=== PATIENT | female | born 1995 | race Caucasian/White ===

== ENCOUNTER → 2016-10-30 | Outpatient (REF) | payer OTHER ==
[~2016-10-30] MED LIST: ACET50TA PO; IBUP80TA PO; STUACAP PO
[2016-10-30 20:49] LABS: FOLLICLE STIMULATING HORMONE 6.5 mIU/mL; LUTEINIZING HORMONE 7.2 mIU/mL
== END ==
LOC: M SFHCWAGY 09:22
PROVIDERS: ATTEND Nurse Practitioner Family
DX: Z01.411 Encounter for gynecological examination (general) (routine) with abnormal findings (principal)

== ENCOUNTER → 2016-11-06 | Outpatient (CLI) | payer OTHER ==
--- NOTE | 2016-11-06 16:41 | REP ---
MRI BRAIN WITHOUT AND WITH CONTRAST: HISTORY: Hearing loss. CONTRAST: ProHance 12 mL. There are no areas of abnormal signal intensity in the brain. There is no intraparenchymal hemorrhage, infarct, mass or midline shift. There is no abnormal enhancement. The ventricular system is normal in appearance. There is no extracerebral collection. There is no cerebellopontine angle mass. The inner ear structures are normal in appearance. The mastoid air cells and sinuses are clear. IMPRESSION: There is no intracranial lesion. Signed by Vipul Villa MD 11/06/2016 04:43 P
== END ==
LOC: M RAD 15:07
PROVIDERS: ATTEND Specialist
DX: H93.11 Tinnitus, right ear (principal); H90.41 Sensorineural hearing loss, unilateral, right ear, with unrestricted hearing on the contralateral side

== ENCOUNTER → 2017-01-15 | Outpatient (REF) | payer OTHER | LOC: M SFHCADAM 11:16 | PROVIDERS: ATTEND Family Medicine | DX: F41.9 Anxiety disorder, unspecified (principal); R53.83 Other fatigue; E28.2 Polycystic ovarian syndrome ==

== ENCOUNTER → 2017-01-19 | Outpatient (REF) | payer OTHER ==
[2017-01-19 13:16] LABS: MEAN CORPUSCULAR HEMOGLOBIN 27.5 pg (27.0-33.0); MEAN CORPUSCULAR HGB CONC 31.7 g/dl (32.0-36.5); MEAN CORPUSCULAR VOLUME 86.7 fl (80.0-96.0); RED CELL DISTRIBUTION WIDTH 13.8 % (11.5-14.5); WHITE BLOOD COUNT 11.6 K/mm3 (4.0-10.0)
[2017-01-19 13:26] LABS: ALBUMIN 3.6 GM/DL (3.2-5.2); ALBUMIN/GLOBULIN RATIO 0.95 (1.00-1.93); ALKALINE PHOSPHATASE 96 U/L (45-117); ALT/SGPT 22 U/L (12-78); ANION GAP 11 MEQ/L (8-16); AST/SGOT 13 U/L (15-37); BILIRUBIN,TOTAL 0.2 MG/DL (0.2-1.0); BLOOD UREA NITROGEN 10 MG/DL (7-18); CALCIUM LEVEL 8.6 MG/DL (8.5-10.1); CARBON DIOXIDE LEVEL 24 MEQ/L (21-32); CHLORIDE LEVEL 107 MEQ/L (98-107); CREATININE FOR GFR 0.75 MG/DL (0.55-1.02); FREE T4 0.96 NG/DL (0.76-1.46); GLOMERULAR FILTRATION RATE > 60.0 (>60); GLUCOSE, FASTING 80 MG/DL (70-105); POTASSIUM SERUM 4.2 MEQ/L (3.5-5.1); SODIUM LEVEL 142 MEQ/L (136-145); TOTAL PROTEIN 7.4 GM/DL (6.4-8.2)
== END ==
LOC: M SFHCADAM 10:37
PROVIDERS: ATTEND Family Medicine
DX: F41.9 Anxiety disorder, unspecified (principal); R53.83 Other fatigue; E28.2 Polycystic ovarian syndrome

== ENCOUNTER → 2017-02-11 | Outpatient (REF) | payer OTHER ==
[2017-02-11 14:08] LABS: MEAN CORPUSCULAR HEMOGLOBIN 28.1 pg (27.0-33.0); MEAN CORPUSCULAR HGB CONC 33.2 g/dl (32.0-36.5); MEAN CORPUSCULAR VOLUME 84.8 fl (80.0-96.0); RED CELL DISTRIBUTION WIDTH 13.8 % (11.5-14.5); WHITE BLOOD COUNT 12.5 K/mm3 (4.0-10.0)
[2017-02-11 21:50] LABS: HCG, SERUM QUANTITATIVE 2988 MIU/ML
== END ==
LOC: M LAB REF 10:34
PROVIDERS: ATTEND Advanced Practice Midwife
DX: O36.80X0 Pregnancy with inconclusive fetal viability, not applicable or unspecified (principal)

== ENCOUNTER → 2017-04-08 | Outpatient (REF) | payer OTHER | LOC: M LAB REF 17:13 | PROVIDERS: ATTEND Advanced Practice Midwife | DX: Z34.81 Encounter for supervision of other normal pregnancy, first trimester (principal) ==

== ENCOUNTER → 2017-07-06 | Outpatient (CLI) | payer OTHER ==
[2017-07-06 10:31] LABS: HEMATOCRIT 35.1 % (36.0-47.0); HEMOGLOBIN 11.2 g/dl (12.0-16.0); MEAN CORPUSCULAR HEMOGLOBIN 27.6 pg (27.0-33.0); MEAN CORPUSCULAR HGB CONC 31.9 g/dl (32.0-36.5); MEAN CORPUSCULAR VOLUME 86.5 fl (80.0-96.0); PLATELET COUNT, AUTOMATED 309 10^3/uL (150-450); RED BLOOD COUNT 4.06 10^6/uL (4.00-5.40); RED CELL DISTRIBUTION WIDTH 14.6 % (11.5-14.5)
[2017-07-06 10:46] LABS: GLUCOSE CHALLENGE TEST 1 HOUR 158 MG/DL (LESS THAN 140)
== END ==
LOC: M LAB 09:01
DX: Z34.82 Encounter for supervision of other normal pregnancy, second trimester (principal)
CPT/HCPCS: 82950

== ENCOUNTER → 2017-07-09 | Outpatient (CLI) | payer OTHER ==
[2017-07-09 09:19] LABS: GLUCOSE, FASTING 82 MG/DL (LESS THAN 95)
[2017-07-09 09:24] LABS: 1 HR GLUCOSE 175 MG/DL (LESS THAN 180)
[2017-07-09 10:24] LABS: 2 HR GLUCOSE 177 MG/DL (LESS THAN 155)
[2017-07-09 11:25] LABS: 3 HR GLUCOSE 70 MG/DL (LESS THAN 140)
== END ==
LOC: M LAB 07:32
DX: O99.810 Abnormal glucose complicating pregnancy (principal)
CPT/HCPCS: 82951

== ENCOUNTER → 2017-09-10 | Outpatient (REF) | payer OTHER | LOC: M LAB REF 16:40 | DX: Z34.83 Encounter for supervision of other normal pregnancy, third trimester (principal) ==

== ENCOUNTER 2017-09-12 09:46 | Outpatient (CLI) | payer OTHER ==
[2017-09-12] MEDS: PERCOCET 5MG/325MG TAB PO (11:20)
[2017-09-12 12:13] LABS: TOTAL PROTEIN,RANDOM URINE 6.6 MG/DL (0.0-12.0)
[2017-09-12 12:32] LABS: HEMATOCRIT 33.2 % (36.0-47.0); HEMOGLOBIN 10.3 g/dl (12.0-15.5); MEAN CORPUSCULAR HEMOGLOBIN 25.1 pg (27.0-33.0); PLATELET COUNT, AUTOMATED 306 10^3/uL (150-450); RED CELL DISTRIBUTION WIDTH 15.8 % (11.5-14.5); WHITE BLOOD COUNT 14.2 10^3/uL (4.0-10.0)
[2017-09-12 12:57] LABS: ALT/SGPT 16 U/L (12-78); AST/SGOT 15 U/L (7-37); BILIRUBIN,TOTAL 0.2 MG/DL (0.2-1.0); CREATININE FOR GFR 0.67 MG/DL (0.55-1.30); GLOMERULAR FILTRATION RATE > 60.0 (>60); LDH LACTATE DEHYDROGENASE 125 U/L (84-246); URIC ACID 3.3 MG/DL (2.6-6.0)
[2017-09-12 13:03] LABS: CREATININE,RANDOM URINE 26.5 MG/DL
== END 2017-09-12 14:00 | disposition home or self-care (01) ==
LOC: M LDO 09:46
DX: O99.89 Other specified diseases and conditions complicating pregnancy, childbirth and the puerperium (principal); R51 Headache; Z3A.35 35 weeks gestation of pregnancy
CPT/HCPCS: 84460

== ENCOUNTER 2017-09-24 14:09 | Inpatient (IN) | payer OTHER ==
[2017-09-24 15:38] LABS: MEAN CORPUSCULAR HGB CONC 31.3 g/dl (32.0-36.5); PLATELET COUNT, AUTOMATED 271 10^3/uL (150-450); RED CELL DISTRIBUTION WIDTH 16.2 % (11.5-14.5); WHITE BLOOD COUNT 11.6 10^3/uL (4.0-10.0)
[2017-09-24 16:20] LABS: ALT/SGPT 18 U/L (12-78); AST/SGOT 29 U/L (7-37); BILIRUBIN,TOTAL 0.3 MG/DL (0.2-1.0); CREATININE FOR GFR 0.71 MG/DL (0.55-1.30); GLOMERULAR FILTRATION RATE > 60.0 (>60); LDH LACTATE DEHYDROGENASE 284 U/L (84-246); URIC ACID 4.2 MG/DL (2.6-6.0)
[2017-09-24] MEDS: miSOPROStol 50 MCG 1/2 TAB (S0191) PO ×2 (17:56→22:07)
[2017-09-24] MEDS: ACETAMINOPHEN TAB 650MG DOSE (2X325MG) PO (20:00)
[2017-09-25] MEDS: miSOPROStol 50 MCG 1/2 TAB (S0191) PO ×2 (02:00→06:21)
[2017-09-25] MEDS: PRENATAL VITAMINS CHEWABLE TABLET PO (09:00)
[2017-09-25 09:15] LABS: BASO % 0.3 % (0.0-1.0); EOS # 0.1 10^3/uL (0.0-0.50); EOS % 0.7 % (0.0-3.0); HEMATOCRIT 32.7 % (36.0-47.0); HEMOGLOBIN 10.1 g/dl (12.0-15.5); IMMATURE GRANULOCYTE % 0.8 % (0-3.0); LYMPH % 16.7 % (24.0-44.0); MEAN CORPUSCULAR HEMOGLOBIN 24.7 pg (27.0-33.0); MEAN CORPUSCULAR HGB CONC 30.9 g/dl (32.0-36.5); MONO # 0.5 10^3/uL (0.0-0.8); MONO % 4.2 % (0.0-5.0); NEUTROPHILS # 9.1 10^3/uL (1.8-7.7); NEUTROPHILS % 77.3 % (36.0-66.0); PLATELET COUNT, AUTOMATED 257 10^3/uL (150-450); RED BLOOD COUNT 4.09 10^6/uL (4.00-5.40); RED CELL DISTRIBUTION WIDTH 16.2 % (11.5-14.5); WHITE BLOOD COUNT 11.8 10^3/uL (4.0-10.0)
[2017-09-25 09:33] LABS: ALT/SGPT 17 U/L (12-78); AST/SGOT 19 U/L (7-37); BILIRUBIN,TOTAL 0.2 MG/DL (0.2-1.0); CREATININE FOR GFR 0.68 MG/DL (0.55-1.30); GLOMERULAR FILTRATION RATE > 60.0 (>60); LDH LACTATE DEHYDROGENASE 173 U/L (84-246)
[2017-09-25] MEDS: LR 1,000 ML IV ×3 (12:52→22:58)
[2017-09-25] MEDS: LACTATED RINGER'S 1000 ML IV (12:52)
[2017-09-25] MEDS: BICITRA 30ML SOLN UDC PO (13:37)
[2017-09-25] MEDS ORDERED: fentaNYL 100 MCG/2 ML INJECTION (J3010) As Ordered (13:42)
[2017-09-25] MEDS ORDERED: MORPHINE PRES-FREE INJ 10 MG/10 ML VIAL (J2274) As Ordered (13:42)
[2017-09-25] MEDS ORDERED: OXYTOCIN INJ 10 UNITS/ML VIAL (J2590) As Ordered (13:42)
[2017-09-25] MEDS ORDERED: NALOXONE INJ 0.4 MG/1 ML VIAL (J2310) IV ×2 (13:53)
[2017-09-25] MEDS ORDERED: ONDANSETRON 4MG/2ML VIAL (J2405) IV ×2 (13:53→15:15)
[2017-09-25] MEDS ORDERED: NALBUPHINE HCL 10 MG/ML AMP (J2300) IV (13:53)
[2017-09-25] MEDS ORDERED: PHENYLephrine HCL 500 MCG/5 ML (100MCG/ML) SYRINGE (J2370) As Ordered (14:07)
[2017-09-25] MEDS ORDERED: ONDANSETRON 4MG/2ML VIAL (J2405) As Ordered (14:31)
[2017-09-25] MEDS ORDERED: dexameTHASONE 4 MG/ML 1ML VIAL (J1100) As Ordered (14:31)
[2017-09-25] MEDS ORDERED: KETOROLAC 60 MG/2 ML VIAL (J1885) As Ordered (14:31)
[2017-09-25 14:41] LABS: CORD GAS ABE A -4.5; CORD GAS ABE V -4.9; CORD GAS HCO3 A 21.6 MEQ/L; CORD GAS HCO3 V 18.9 MEQ/L; CORD GAS O2 SAT A 74.7 %; CORD GAS O2 SAT V 90.6 %; CORD GAS PCO2 A 43.3 mmHg; CORD GAS PCO2 V 31.9 mmHg; CORD GAS PH A 7.316 UNITS; CORD GAS PO2 A 33.3 mmHg; CORD GAS PO2 V 47.8 mmHg; CORD GAS SBC A 20.3 MEQ/L; CORD GAS SBC V 20.3 MEQ/L; CORD GAS TCO2 A 22.9 MEQ/L; CORD GAS TCO2 V 19.9 MEQ/L
[2017-09-25] MEDS ORDERED: MOM 30ML SUSPENSION UDC PO (15:00)
[2017-09-25] MEDS ORDERED: NORCO, ANEXSIA 5/325MG TABLET (HYDROcodone/ACETAMINOPHEN) PO (15:00)
[2017-09-25] MEDS ORDERED: KETOROLAC 30 MG/ML VIAL (J1885) IV (15:15)
[2017-09-25] MEDS ORDERED: PERCOCET 5MG/325MG TAB PO (15:15)
[2017-09-25] MEDS ORDERED: fentaNYL 100 MCG/2 ML INJECTION (J3010) IV (15:15)
[2017-09-25] MEDS ORDERED: MEPERIDINE INJ 25 MG/ML VIAL (J2175) IV (15:15)
[2017-09-25] MEDS ORDERED: diphenhydrAMINE INJ 50MG/ML VIAL (J1200) IV (15:15)
[2017-09-25] MEDS: METOCLOPRAMIDE INJ 10MG/2ML VIAL (J2765) IV (17:03)
[2017-09-25] MEDS: MEASLES,MUMPS,RUBELLA VACCINE INJ (MMR-II) (90707) SC (17:41)
[2017-09-25] MEDS: RHOGAM 300 MCG (1500 IU) INJ (J2790) IM (17:41)
[2017-09-25] MEDS: IBUPROFEN 800 MG TAB PO (20:58)
[2017-09-25] MEDS: ONDANSETRON 4MG/2ML VIAL (J2405) IV (20:58)
[2017-09-25] MEDS: DOCUSATE SODIUM 100 MG CAP PO (20:58)
[2017-09-26] MEDS: IBUPROFEN 800 MG TAB PO ×3 (05:03→21:03)
[2017-09-26 06:34] LABS: HEMATOCRIT 27.2 % (36.0-47.0); HEMOGLOBIN 8.4 g/dl (12.0-15.5); MEAN CORPUSCULAR HEMOGLOBIN 24.6 pg (27.0-33.0); MEAN CORPUSCULAR HGB CONC 30.9 g/dl (32.0-36.5); MEAN CORPUSCULAR VOLUME 79.8 fl (80.0-96.0); PLATELET COUNT, AUTOMATED 217 10^3/uL (150-450); RED BLOOD COUNT 3.41 10^6/uL (4.00-5.40); RED CELL DISTRIBUTION WIDTH 16.1 % (11.5-14.5); WHITE BLOOD COUNT 14.4 10^3/uL (4.0-10.0)
[2017-09-26] MEDS: PRENATAL VITAMINS CHEWABLE TABLET PO (09:00)
[2017-09-26] MEDS: DOCUSATE SODIUM 100 MG CAP PO ×2 (09:11→20:10)
[2017-09-26] MEDS: OMEPRAZOLE 20 MG CAP PO (12:40)
[2017-09-26] MEDS: NORCO, ANEXSIA 5/325MG TABLET (HYDROcodone/ACETAMINOPHEN) PO ×2 (12:41→21:03)
[2017-09-27] MEDS: NORCO, ANEXSIA 5/325MG TABLET (HYDROcodone/ACETAMINOPHEN) PO (05:21)
[2017-09-27] MEDS: IBUPROFEN 800 MG TAB PO (05:21)
[2017-09-27] MEDS: PRENATAL VITAMINS CHEWABLE TABLET PO (07:46)
[2017-09-27] MEDS: DOCUSATE SODIUM 100 MG CAP PO (07:47)
[2017-09-27] MEDS: OMEPRAZOLE 20 MG CAP PO (07:47)
== END 2017-09-27 11:50 | disposition home or self-care (01) | DRG 540 ==
LOC: M LDI 14:09 → M OBS 09-25 16:37
PROC: 10D00Z1 Extraction of Products of Conception, Low, Open Approach (ICD-10-PCS; principal; 2017-09-25 13:43)
PROC: 0UL70DZ Occlusion of Bilateral Fallopian Tubes with Intraluminal Device, Open Approach (ICD-10-PCS; 2017-09-25 13:43)
PROC: 3E0DXGC Introduction of Other Therapeutic Substance into Mouth and Pharynx, External Approach (ICD-10-PCS; 2017-09-25 13:43)
DX: O14.94 Unspecified pre-eclampsia, complicating childbirth (principal); O69.82X0 Labor and delivery complicated by other cord entanglement, without compression, not applicable or unspecified; Z37.0 Single live birth; Z3A.37 37 weeks gestation of pregnancy; Z30.2 Encounter for sterilization; Z87.59 Personal history of other complications of pregnancy, childbirth and the puerperium

== ENCOUNTER → 2018-01-18 | Outpatient (REF) | payer OTHER ==
[2018-01-18 13:40] LABS: HEMATOCRIT 40.6 % (36.0-47.0); HEMOGLOBIN 11.8 g/dl (12.0-15.5); MEAN CORPUSCULAR HEMOGLOBIN 22.3 pg (27.0-33.0); MEAN CORPUSCULAR HGB CONC 29.1 g/dl (32.0-36.5); MEAN CORPUSCULAR VOLUME 76.6 fl (80.0-96.0); PLATELET COUNT, AUTOMATED 435 10^3/uL (150-450); RED CELL DISTRIBUTION WIDTH 16.8 % (11.5-14.5); WHITE BLOOD COUNT 11.9 10^3/uL (4.0-10.0)
[2018-01-18 14:20] LABS: CHOLESTEROL LEVEL 170 MG/DL (<200); FREE T4 0.78 NG/DL (0.76-1.46); HDL CHOLESTEROL 34 MG/DL (>40); LDL CHOLESTEROL 96.8 MG/DL (<100); NON-HDL-C 136 MG/DL; TRIGLYCERIDES LEVEL 196 MG/DL (<150)
[2018-01-18 23:28] LABS: ESTIMATED AVERAGE GLUCOSE 105 MG/DL (60-110); HEMOGLOBIN A1c 5.3 %
== END ==
LOC: M LAB REF 13:06
DX: Z01.411 Encounter for gynecological examination (general) (routine) with abnormal findings (principal); E66.09 Other obesity due to excess calories

== ENCOUNTER → 2019-01-19 | Outpatient (CLI) | payer OTHER ==
[~2019-01-19] MED LIST changes: -ACET50TA PO; +IBUP-1114 PO; +MAPA500T2 PO; +OMEP40CA2 PO; +OXYC1TAB23 PO; +PREN29CH2 PO; +TUMS500C PO
--- NOTE | 2019-01-20 09:01 | REP ---
Clinical: Right foot pain Technique: AP, lateral, bilateral oblique views right foot . Findings: The osseous structures and joint spaces are intact and normal. There is no evidence for acute fracture or dislocation. Surrounding soft tissues are unremarkable. No subcutaneous emphysema or radiodense foreign body. Impression: Age-appropriate right foot series . No acute fracture or dislocation. Electronically Signed by Charlie Lazaro MD 01/20/2019 08:52 A
== END ==
LOC: M ADAMS 09:22
PROVIDERS: ATTEND Physician Assistant Medical
DX: M79.671 Pain in right foot (principal)

== ENCOUNTER → 2019-01-25 | Outpatient (REF) | payer OTHER ==
[2019-01-25 14:13] LABS: HEMATOCRIT 45.9 % (36.0-47.0); HEMOGLOBIN 13.8 g/dl (12.0-15.5); MEAN CORPUSCULAR HEMOGLOBIN 25.9 pg (27.0-33.0); MEAN CORPUSCULAR HGB CONC 30.1 g/dl (32.0-36.5); MEAN CORPUSCULAR VOLUME 86.1 fl (80.0-96.0); PLATELET COUNT, AUTOMATED 343 10^3/uL (150-450); RED BLOOD COUNT 5.33 10^6/uL (4.00-5.40); WHITE BLOOD COUNT 12.1 10^3/uL (4.0-10.0)
[2019-01-25 14:20] LABS: PERCENT SATURATION 9.2 % (13.2-45.0)
[2019-01-25 14:27] LABS: FOLATE 6.6 NG/ML
== END ==
LOC: M SFHCADAM 08:33
PROVIDERS: ATTEND Physician Assistant Medical
DX: D64.9 Anemia, unspecified (principal)

== ENCOUNTER → 2019-03-30 | Outpatient (REF) | payer OTHER ==
[~2019-03-30] MED LIST changes: -OMEP40CA2 PO; +OMEP40CA97 PO
== END ==
LOC: M LAB REF 12:58
PROVIDERS: ATTEND Physician Assistant Medical
DX: R10.9 Unspecified abdominal pain (principal)

== ENCOUNTER → 2019-03-30 | Outpatient (CLI) | payer OTHER ==
--- NOTE | 2019-03-30 15:28 | REP ---
Pelvic sonography: History: Left pelvic pain. History of PCOS. Possible ovarian cyst. Findings: Transabdominal and transvaginal scanning are performed. Uterine dimensions are normal at 8.3 x 4.2 x 5.0 cm. Endometrial echo is 0.6 cm thick. There is a 2.0 x 2.1 x 1.7 cm hypoechoic area in the anterior uterine myometrium consistent with a small fibroid. No free fluid is seen. Right ovary measures 3.1 x 2.0 x 1.5 cm. It is normal in appearance. Doppler flow is normal, resistive index 0.51. The left ovary is normal in size measuring 2.6 x 2.0 x 2.1 cm. Its Doppler flow is normal, resistive index 0.47. There is a 1.7 x 1.3 x 0.9 cm cyst within the left ovary. No large cystic lesion is seen. Impression: Small uterine fibroid 2.1 cm in greatest diameter. 17 mm follicle cyst left ovary. Otherwise unremarkable. Electronically Signed by Eamon Baldwin MD 03/30/2019 04:54 P
== END ==
LOC: M RAD 13:52
PROVIDERS: ATTEND Physician Assistant Medical
DX: R10.9 Unspecified abdominal pain (principal); N83.202 Unspecified ovarian cyst, left side

== ENCOUNTER 2019-05-14 23:56 | Emergency (ER) | payer OTHER ==
[~2019-05-14] VITALS: Ht 152.4 cm; Wt 93.4 kg
[2019-05-15 00:51] LABS: HEMATOCRIT 43.3 % (36.0-47.0); HEMOGLOBIN 13.2 g/dl (12.0-15.5); MEAN CORPUSCULAR HEMOGLOBIN 26.3 pg (27.0-33.0); MEAN CORPUSCULAR HGB CONC 30.5 g/dl (32.0-36.5); MEAN CORPUSCULAR VOLUME 86.3 fl (80.0-96.0); PLATELET COUNT, AUTOMATED 398 10^3/uL (150-450); RED BLOOD COUNT 5.02 10^6/uL (4.00-5.40); WHITE BLOOD COUNT 14.6 10^3/uL (4.0-10.0)
[2019-05-15 01:05] LABS: BLOOD UREA NITROGEN 11 MG/DL (7-18); CALCIUM LEVEL 9.3 MG/DL (8.5-10.1); CARBON DIOXIDE LEVEL 29 MEQ/L (21-32); CHLORIDE LEVEL 106 MEQ/L (98-107); CK-MB VALUE MASS < 1.0 NG/ML (<3.6); CPK CREATINE PHOSPHOKINASE 61 U/L (26-192); CREATININE FOR GFR 0.86 MG/DL (0.55-1.30); GLOMERULAR FILTRATION RATE > 60.0 (>60); GLUCOSE, FASTING 111 MG/DL (70-100); MB/CK RELATIVE INDEX 1.64 (< OR =4); POTASSIUM SERUM 3.7 MEQ/L (3.5-5.1); SODIUM LEVEL 142 MEQ/L (136-145); TROPONIN I < 0.02 NG/ML (< 0.10)
[2019-05-15 01:09] LABS: BASOPHILS 2 % (0-1); EOSINOPHILS 3 % (0-3); LYMPHOCYTES 29 % (16-44); MONOCYTES 3 % (0-5); NEUTROPHILS 63 % (28-66)
[2019-05-15 01:10] LABS: PLATELET ESTIMATE NORMAL (NORMAL)
[2019-05-15] MEDS: GI COCKTAIL 50ML BTL(HYOSCYAMINE/MAALOX/LIDOCAINE VISCOUS)(1:3:1) PO ONE ×2 (01:45→02:15)
[2019-05-15 02:08] LABS: FREE T4 0.91 NG/DL (0.76-1.46); MAGNESIUM LEVEL 2.2 MG/DL (1.8-2.4)
[2019-05-15 03:45] VITALS: BP 113/63
--- NOTE | 2019-05-15 09:20 | REP ---
REASON: Chest pain. FINDINGS: The superior mediastinal structures are midline. The cardiac silhouette is unremarkable in size, shape, and position. The diaphragmatic surfaces of the lungs are regular, and the costophrenic angles are clear. The pulmonary ochoa are clear. The imaged osseous structures are intact. IMPRESSION: There is no acute cardiopulmonary disease. Electronically Signed by Edin Watts DO 05/15/2019 09:29 A
--- NOTE | 2019-05-16 08:21 | ECGEPIP ---
[facility] - ED Test Date: 2019-05-15 Pat Name: MISAEL TIMMONS Department: Room: - Gender: Female Laboratory Secretary: sb : 1995 Requested By: BEN Roblero Order Number: [id number] Reading MD: Jose Riley Measurements Intervals [place] Rate: 81 P: 10 WA: 128 QRS: 20 QRSD: 92 T: 22 QT: 341 QTc: 398 Interpretive Statements SINUS RHYTHM NONSPECIFIC T-WAVE ABNORMALITY NO PRIORS FOR COMPARISON Electronically Signed on 05-16-2019 8:21:27 EST by Jose Riley
== END 2019-05-15 04:12 | disposition home or self-care (01) ==
LOC: M ED 23:56
DX: R00.2 Palpitations (principal); R07.9 Chest pain, unspecified

== ENCOUNTER → 2019-05-27 | Outpatient (REF) | payer OTHER | LOC: M LAB REF 12:32 | PROVIDERS: ATTEND Physician Assistant Medical | DX: M54.9 Dorsalgia, unspecified (principal) ==

== ENCOUNTER → 2019-05-27 | Outpatient (CLI) | payer OTHER ==
--- NOTE | 2019-05-27 12:44 | REP ---
Clinical: Flank pain. Technique: Single supine view of the abdomen and pelvis. Findings: No obvious urinary tract calcifications are appreciated. The bowel gas pattern is nonspecific. Skeletal structures are intact. No abnormal calcifications. Tubal ligation clips noted in the pelvis. Impression: Nonspecific examination. No obvious urinary tract calcifications. Electronically Signed by Charlie Lazaro MD 05/27/2019 12:35 P
[2019-05-27 12:54] LABS: BASO % 0.3 % (0.0-1.0); EOS # 0.2 10^3/uL (0.0-0.5); EOS % 1.6 % (0.0-3.0); HEMATOCRIT 46.1 % (36.0-47.0); HEMOGLOBIN 13.8 g/dl (12.0-15.5); LYMPH # 3.2 10^3/uL (1.5-5.0); LYMPH % 27.2 % (24.0-44.0); MEAN CORPUSCULAR HEMOGLOBIN 26.1 pg (27.0-33.0); MEAN CORPUSCULAR HGB CONC 29.9 g/dl (32.0-36.5); MEAN CORPUSCULAR VOLUME 87.3 fl (80.0-96.0); MONO # 0.5 10^3/uL (0.0-0.8); MONO % 4.3 % (0.0-5.0); NEUTROPHILS # 7.7 10^3/uL (1.5-8.5); PLATELET COUNT, AUTOMATED 389 10^3/uL (150-450); RED BLOOD COUNT 5.28 10^6/uL (4.00-5.40); WHITE BLOOD COUNT 11.7 10^3/uL (4.0-10.0)
[2019-05-27 13:22] LABS: HEMOGLOBIN A1c 5.5 %
[2019-05-27 13:26] LABS: MONO SCRN NEGATIVE (NEGATIVE)
[2019-05-27 13:29] LABS: ALBUMIN 3.7 GM/DL (3.2-5.2); ALT/SGPT 49 U/L (12-78); AMYLASE 55 U/L (25-115); BILIRUBIN,TOTAL 0.3 MG/DL (0.2-1.0); BLOOD UREA NITROGEN 12 MG/DL (7-18); CALCIUM LEVEL 9.3 MG/DL (8.5-10.1); CARBON DIOXIDE LEVEL 24 MEQ/L (21-32); CHLORIDE LEVEL 109 MEQ/L (98-107); CREATININE FOR GFR 0.76 MG/DL (0.55-1.30); GLOMERULAR FILTRATION RATE > 60.0 (>60); GLUCOSE, FASTING 83 MG/DL (70-100); POTASSIUM SERUM 4.2 MEQ/L (3.5-5.1); SODIUM LEVEL 140 MEQ/L (136-145); TOTAL PROTEIN 7.6 GM/DL (6.4-8.2)
== END ==
LOC: M LAB 11:48
PROVIDERS: ATTEND Physician Assistant Medical
DX: R10.9 Unspecified abdominal pain (principal); M54.5 Low back pain; R53.83 Other fatigue

== ENCOUNTER → 2019-05-30 | Outpatient (REF) | payer OTHER ==
[2019-05-30 14:34] LABS: PERCENT SATURATION 14.5 % (13.2-45.0)
== END ==
LOC: M SFHCADAM 11:29
PROVIDERS: ATTEND Physician Assistant Medical
DX: E61.1 Iron deficiency (principal)

== ENCOUNTER → 2019-09-23 | Outpatient (REF) | payer OTHER ==
[2019-09-23 13:35] LABS: BLOOD UREA NITROGEN 15 MG/DL (7-18); CALCIUM LEVEL 9.5 MG/DL (8.5-10.1); CARBON DIOXIDE LEVEL 28 MEQ/L (21-32); CHLORIDE LEVEL 107 MEQ/L (98-107); CREATININE FOR GFR 0.91 MG/DL (0.55-1.30); GLOMERULAR FILTRATION RATE > 60.0 (>60); GLUCOSE, FASTING 80 MG/DL (70-100); POTASSIUM SERUM 4.4 MEQ/L (3.5-5.1); SODIUM LEVEL 140 MEQ/L (136-145)
== END ==
LOC: M SFHCADAM 09:24
PROVIDERS: ATTEND Physician Assistant Medical
DX: E28.2 Polycystic ovarian syndrome (principal)

== ENCOUNTER → 2020-02-23 | Outpatient (REF) | payer OTHER ==
[2020-02-23 17:52] LABS: APPEARANCE, URINE CLOUDY (CLEAR); BACTERIA, URINE AUTO NEGATIVE (NEGATIVE); BILIRUBIN, URINE AUTO NEGATIVE (NEGATIVE); BLOOD, URINE BLOOD NEGATIVE (NEGATIVE); COLOR, URINE YELLOW (YELLOW); GLUCOSE, URINE (UA) AUTO NEGATIVE (NEGATIVE); KETONE, URINE AUTO NEGATIVE (NEGATIVE); LEUKOCYTE ESTERASE, URINE AUTO NEGATIVE (NEGATIVE); MUCUS, URINE SMALL (NEGATIVE); NITRITE, URINE AUTO NEGATIVE (NEGATIVE); PROTEIN, URINE AUTO NEGATIVE (NEGATIVE); RBC, URINE AUTO 1 /HPF (0-3); SPECIFIC GRAVITY URINE AUTO 1.026 (1.002-1.035); SQUAMOUS EPITHELIAL CELL UR AU 12 /HPF (0-6); UROBILINOGEN, URINE AUTO 0.2 mg/dL (0.0-2.0); WBC, URINE AUTO 1 /HPF (0-3)
== END ==
LOC: M LAB REF 16:14
PROVIDERS: ATTEND Physician Assistant
DX: N39.0 Urinary tract infection, site not specified (principal)

== ENCOUNTER → 2022-06-10 | Outpatient (CLI) | payer OTHER ==
[~2022-06-10] MED LIST changes: +OMEP40CA4 PO; -OMEP40CA97 PO
== END ==
LOC: M RAD 11:31
PROVIDERS: ATTEND Nurse Practitioner Family
DX: R10.2 Pelvic and perineal pain (principal)

== ENCOUNTER → 2023-06-15 | Outpatient (REF) | payer OTHER ==
[2023-06-15 14:54] LABS: THYROID STIMULATING HORMONE 2.602 uIU/ML (0.55-4.78)
[2023-06-15 14:56] LABS: BASO # 0.1 10^3/uL (0.0-0.2); BASO % 0.6 % (0.0-1.0); EOS # 0.2 10^3/uL (0.0-0.5); HEMATOCRIT 44.3 % (36.0-47.0); HEMOGLOBIN 13.4 g/dl (12.0-15.5); LYMPH # 2.8 10^3/uL (1.5-5.0); LYMPH % 27.6 % (24.0-44.0); MEAN CORPUSCULAR HEMOGLOBIN 26.2 pg (27.0-33.0); MEAN CORPUSCULAR HGB CONC 30.2 g/dl (32.0-36.5); MEAN CORPUSCULAR VOLUME 86.5 fl (80.0-96.0); MONO # 0.5 10^3/uL (0.0-0.8); MONO % 5.2 % (2.0-8.0); NEUTROPHILS # 6.5 10^3/uL (1.5-8.5); NEUTROPHILS % 64.1 % (36.0-66.0); PLATELET COUNT, AUTOMATED 384 10^3/uL (150-450); RED BLOOD COUNT 5.12 10^6/uL (4.00-5.40); TOTAL 25(OH) VITAMIN D 28.2 NG/ML (20.0-100.0); WHITE BLOOD COUNT 10.1 10^3/uL (4.0-10.0)
[2023-06-15 14:57] LABS: VITAMIN B12 LEVEL 475 PG/ML (211-911)
[2023-06-15 14:59] LABS: ALBUMIN 3.8 G/DL (3.2-5.2); ALKALINE PHOSPHATASE 111 U/L (46-116); ALT/SGPT 37 U/L (7.0-40); AST/SGOT 18 U/L (<34); BILIRUBIN,TOTAL 0.3 MG/DL (0.3-1.2); BLOOD UREA NITROGEN 12 MG/DL (9-23); CALCIUM LEVEL 9.3 MG/DL (8.5-10.1); CARBON DIOXIDE LEVEL 27 MMOL/L (20-31); CHLORIDE LEVEL 108 MMOL/L (98-107); CREATININE FOR GFR 0.76 MG/DL (0.55-1.30); GLOMERULAR FILTRATION RATE > 60.0 (>60); GLUCOSE, FASTING 87 MG/DL (60-100); POTASSIUM SERUM 4.2 MMOL/L (3.5-5.1); SODIUM LEVEL 140 MMOL/L (136-145); TOTAL PROTEIN 7.2 G/DL (5.7-8.2)
[2023-06-15 15:00] LABS: COMPLEMENT C3 193.4 MG/DL (82.0-160.0); FREE T4 1.02 NG/DL (0.89-1.76)
[2023-06-15 15:12] LABS: ERYTHROCYTE SEDIMENTATION RATE 53 mm/hr (0-20)
[2023-06-15 15:26] LABS: HEMOGLOBIN A1c 5.4 % (4.0-6.0)
[2023-06-17 00:07] LABS: ANA (HEP2) Negative (.)
== END ==
LOC: M SFHCADAM 09:14
PROVIDERS: ATTEND Physician Assistant Medical
DX: E28.2 Polycystic ovarian syndrome (principal); Z68.41 Body mass index [BMI] 40.0-44.9, adult; F41.1 Generalized anxiety disorder; R20.2 Paresthesia of skin; M79.10 Myalgia, unspecified site; M25.60 Stiffness of unspecified joint, not elsewhere classified; R79.89 Other specified abnormal findings of blood chemistry; Z84.0 Family history of diseases of the skin and subcutaneous tissue; Z83.49 Family history of other endocrine, nutritional and metabolic diseases

== ENCOUNTER → 2023-06-24 | Outpatient (REF) | payer OTHER | LOC: M SFHCADAM 13:23 | PROVIDERS: ATTEND Physician Assistant Medical | DX: Z83.49 Family history of other endocrine, nutritional and metabolic diseases (principal) ==

== ENCOUNTER → 2023-08-04 | Outpatient (CLI) | payer OTHER ==
[2023-08-04 11:48] LABS: C REACTIVE PROTEIN QUANTITATIV 1.2 MG/DL (<1.0)
[2023-08-04 11:49] LABS: COMPLEMENT C3 180.6 MG/DL (82.0-160.0); COMPLEMENT C4 38.7 MG/DL (12-36)
== END ==
LOC: M LAB 09:55
PROVIDERS: ATTEND Physician Assistant Medical
DX: D84.1 Defects in the complement system (principal)

== ENCOUNTER → 2023-08-04 | Outpatient (CLI) | payer OTHER ==
[2023-08-04 11:51] LABS: ALBUMIN 3.9 G/DL (3.2-5.2); ALKALINE PHOSPHATASE 107 U/L (46-116); ALT/SGPT 47 U/L (7.0-40); AST/SGOT 26 U/L (<34); BILIRUBIN,TOTAL 0.4 MG/DL (0.3-1.2); BLOOD UREA NITROGEN 12 MG/DL (9-23); CALCIUM LEVEL 8.9 MG/DL (8.5-10.1); CARBON DIOXIDE LEVEL 27 MMOL/L (20-31); CHLORIDE LEVEL 107 MMOL/L (98-107); CHOLESTEROL LEVEL 173 MG/DL (<200); CREATININE FOR GFR 0.76 MG/DL (0.55-1.30); GLOMERULAR FILTRATION RATE > 60.0 (>60); GLUCOSE, FASTING 87 MG/DL (60-100); LDL CHOLESTEROL 106.6 MG/DL (<100); POTASSIUM SERUM 4.3 MMOL/L (3.5-5.1); SODIUM LEVEL 138 MMOL/L (136-145); TOTAL PROTEIN 7.2 G/DL (5.7-8.2); TRIGLYCERIDES LEVEL 172 MG/DL (<150)
[2023-08-04 11:52] LABS: HEMOGLOBIN A1c 5.4 % (4.0-6.0)
== END ==
LOC: M LAB 09:59
PROVIDERS: ATTEND Physician Assistant
DX: E28.2 Polycystic ovarian syndrome (principal)

== ENCOUNTER → 2024-04-25 | Outpatient (REF) | payer OTHER ==
[2024-04-25 21:52] LABS: IMMUNOGLOBULIN A 287.2 MG/DL (40-350)
[2024-04-25 21:55] LABS: THYROID PEROXIDASE ANTIBODY < 28.0 U/ML (<60.0)
[2024-04-26 13:16] LABS: RHEUMATOID FACTOR QUANT < 3.5 IU/ML (<14)
== END ==
LOC: M LAB REF 16:30
PROVIDERS: ATTEND Internal Medicine
DX: M06.4 Inflammatory polyarthropathy (principal); L30.9 Dermatitis, unspecified; R53.83 Other fatigue

== ENCOUNTER → 2024-08-15 | Outpatient (CLI) | payer OTHER | LOC: M RAD 07:29 | PROVIDERS: ATTEND Internal Medicine | DX: K76.0 Fatty (change of) liver, not elsewhere classified (principal); R10.12 Left upper quadrant pain; R10.13 Epigastric pain ==

== ENCOUNTER 2024-12-15 19:57 | Emergency (ER) | payer OTHER ==
[~2024-12-15] VITALS: Ht 154.9 cm; Wt 104.0 kg
[2024-12-15 20:08] VITALS: TEMP 97.9
[2024-12-15 20:53] LABS: BASO # 0.0 10^3/uL (0.0-0.2); BASO % 0.3 % (0.0-1.0); EOS # 0.2 10^3/uL (0.0-0.5); EOS % 1.7 % (0.0-3.0); LYMPH # 1.8 10^3/uL (1.5-5.0); LYMPH % 19.1 % (24.0-44.0); MONO # 0.7 10^3/uL (0.0-0.8); MONO % 6.8 % (2.0-8.0); NEUTROPHILS # 6.9 10^3/uL (1.5-8.5); NEUTROPHILS % 71.7 % (36.0-66.0); PLATELET COUNT, AUTOMATED 322 10^3/uL (150-450)
[2024-12-15 21:15] LABS: HCG, SERUM QUANTITATIVE < 2.6 MIU/ML (<4.2)
[2024-12-15 21:16] LABS: ALT/SGPT 41 U/L (7.0-40); AST/SGOT 31 U/L (<34)
[2024-12-15] MEDS ORDERED: SUCR1TA PO (21:39)
[2024-12-15] MEDS: SUCRALFATE SUSP 1GM/10ML UD PO ONE (21:56)
[2024-12-15 22:00] VITALS: O2SAT 98
[2024-12-15 22:01] VITALS: BP 116/68
== END 2024-12-15 22:12 | disposition home or self-care (01) ==
LOC: M ED 19:57
DX: R10.9 Unspecified abdominal pain (principal); K21.9 Gastro-esophageal reflux disease without esophagitis

== ENCOUNTER 2024-12-20 20:07 | Emergency (ER) | payer OTHER ==
[~2024-12-20] VITALS: Ht 154.9 cm; Wt 104.1 kg
[~2024-12-20 20:07] MED LIST changes: -LOMO2.5T PO
[2024-12-20 20:09] VITALS: TEMP 97.9
[2024-12-20 21:28] LABS: KETONE, URINE AUTO RFX NEGATIVE (NEGATIVE); MUCUS, URINE RFX SMALL (NEGATIVE); NITRITE, URINE AUTO RFX NEGATIVE (NEGATIVE); RBC, URINE AUTO RFX 2 /HPF (0-3); SQUAM EPITHELIAL CELL UR AURFX 10 /HPF (0-6); WBC, URINE AUTO RFX 4 /HPF (0-3)
[2024-12-20 21:29] LABS: BASO # 0.1 10^3/uL (0.0-0.2); BASO % 0.4 % (0.0-1.0); EOS # 0.2 10^3/uL (0.0-0.5); EOS % 2.0 % (0.0-3.0); LYMPH # 2.9 10^3/uL (1.5-5.0); LYMPH % 25.3 % (24.0-44.0); MONO # 0.6 10^3/uL (0.0-0.8); MONO % 4.8 % (2.0-8.0); NEUTROPHILS # 7.7 10^3/uL (1.5-8.5); NEUTROPHILS % 66.3 % (36.0-66.0); PLATELET COUNT, AUTOMATED 349 10^3/uL (150-450)
[2024-12-20 21:32] LABS: LEUKOCYTE ESTERASE UR AUTO RFX TRACE (NEGATIVE)
[2024-12-20 21:58] LABS: ALT/SGPT 103 U/L (7.0-40); AST/SGOT 63 U/L (<34); CALCIUM LEVEL 9.3 MG/DL (8.5-10.1); CARBON DIOXIDE LEVEL 25 MMOL/L (20-31); CHLORIDE LEVEL 105 MMOL/L (98-107); CREATININE FOR GFR 0.79 MG/DL (0.55-1.30); GLOMERULAR FILTRATION RATE > 90.0 (>60); POTASSIUM SERUM 4.1 MMOL/L (3.5-5.1); SODIUM LEVEL 142 MMOL/L (136-145)
[2024-12-20 22:04] LABS: HCG, SERUM QUALITATIVE NEGATIVE (NEGATIVE)
[2024-12-20] MEDS: NS (Normal Saline) 0.9% 1,000 ML IV ONE (23:40)
[2024-12-20] MEDS: KETOROLAC 30 MG/ML 1 ML VIAL IV ONE (23:40)
[2024-12-20] MEDS ORDERED: LOMO2.5T PO (23:53)
[2024-12-21] MEDS: DIPHENOXYLATE HCL/ATROPINE 2.5 MG/0.025 MG TABLET PO ONE (00:25)
[2024-12-21 00:32] VITALS: BP 125/73; O2SAT 97
== END 2024-12-21 00:48 | disposition home or self-care (01) ==
LOC: M ED 20:07
DX: A07.2 Cryptosporidiosis (principal); K21.9 Gastro-esophageal reflux disease without esophagitis; E28.2 Polycystic ovarian syndrome; Z79.899 Other long term (current) drug therapy

== ENCOUNTER → 2024-12-20 | Outpatient (REF) | payer OTHER ==
[~2024-12-20] MED LIST changes: +LOMO2.5T PO; +SUCR1TA PO
== END ==
LOC: M LAB REF 16:05
PROVIDERS: ATTEND Internal Medicine
DX: R19.7 Diarrhea, unspecified (principal)